=== PATIENT | male | born 1935 | race Caucasian/White ===

== ENCOUNTER → 2016-05-08 | Outpatient (CLI) | payer OTHER, MEDICARE ==
[~2016-05-08] VITALS: Ht 175.3 cm; Wt 71.7 kg
[~2016-05-08] MED LIST: ADULT LOW DOSE81 MG PO; ALLEGRA ALLERGY60 MG PO; AMITRIPTYLINE H10 M1 PO; ASPIRIN EC81 M1 PO; CELEBREX 200 M200 MG PO; CENTRUM SILVER1 EAC2 PO; CRESTOR5 MG PO; DOXYCYCLINE 10100 MG PO; FAMCICLOVIR500 MG PO; FEXOFENADINE H180 MG PO; FISH OIL 1,0001 EAC5 PO; HYDROCODON-ACE1 EACH PO; HYDROXYCHLOROQUINE PO; LIDOCAINE TOP; LYRICA 75 MG CA75 MG PO; LYRICA PO; MOBIC15 MG PO; NEURONTIN 300300 M1 PO; NEXIUM40 MG PO; OMEPRAZOLE20 M2 PO; ROXICODONE5 M1 PO; SKELAXIN 800 M800 M1 PO; TRAMADOL 50 MG50 MG PO; VITAMIN D1000 UNI1 PO; VITAMIN E400 UNIT PO; ZINC CHELATE50 MG PO
--- NOTE | ~2016-05-08 | HPC ---
[facility] [place] [place] [address] PAIN MANAGEMENT CONSULTATION Name: TRISH PHAM Room #: REG [facility] Faraz.#: [id number] Admission: 05/08/16 Attend Phys: Rajendra Payton DO Discharge: Date of : 36 Report #: [id number] THIS REPORT FOR: //name// CC: Stephen Payton The patient is a 80-year-old gentleman, being treated for lumbar radiculopathy status post decompressive laminectomy, component of cervical radicular symptoms. Last seen in the pain clinic on 03/16/2016. The patient was seen for a prolonged visit from 08:30 to 08:57, greater than 50% of this 25+ minute visit was spent counseling the patient. He was given left L3-L4 transforaminal epidural injection in January, caudal epidural injection on 03/16/2016, for ongoing radicular symptoms. Referred to follow up with Dr. Madhu Staton. Dr. Staton noted if the patient had surgery, it would be a fairly extensive decompression and fusion. Per the patient, Dr. Staton told me we would have to "realign his spine." He does have a follow up appointment in a month or so to discuss further consideration for back surgery. The patient currently notes pain is in the right low back and he also notes some neck pain. He started taking gabapentin 300 mg up to taking 2 at night, which seems to be helpful. He did note initially the gabapentin caused a little insomnia, but seems to be doing better now in fact his radicular symptoms seemed to be fairly improved. Rates his pain a 3 on a 0-10 visual analog scale. Notes pain seems to be exacerbated with standing, using his computer. Some relief if he is recumbent. Caudal injection did afford significant relief. The patient notes greater than 60% relief and somewhat still ongoing. The patient goes to the gym 4 days a week and rides a bike, though he states he really doing any weight work seem to exacerbate his neck pain. He is complaining of pain in the neck, right arm, and shoulder. The patient is a little hard to pin down. He has a somewhat tangential flight of thought. He tells me he thinks his back pain and leg pain secondary to a total knee arthroplasty years ago. He has actually had bilateral knees done by Dr. Aleman. He feels that the right knee, the second one to be done, which does have a different prosthetic device, it is shorter than his left leg and this has been the source of a great deal of problem for him. He prior had been treated for cervical radicular symptoms by myself, cervical epidural injections were given on July 31 and of last year, symptoms generally resolved nicely. Does note that he has been hesitant to resume more aggressive lifting at the gym for fear of exacerbating neck/arm sumptoms. Again, the earlier mentioned 2 lumbar interventions in October and January of last year, have also afforded some good relief. The patient takes 1 Tramadol a day and does take Meloxicam 15 mg daily. Medications are reconciled today and include the aforementioned agents along [address] [address] PAIN MANAGEMENT CONSULTATION Name: TRISH PHAM JR Room #: [facility] [id number] Admission: 05/08/16 Attend Phys: Rajendra Payton DO Discharge: Date of : 36 Report #: [id number] with esomeprazole, multivitamin, zinc, Crestor and hydrochloroquine. PHYSICAL EXAMINATION: Reveals a 80-year-old gentleman, BMI is 23.3 kg/m2. Blood pressure is 130/68, pulse 68, respirations are 18. Cervical range of motion, flexion, extension exacerbates neck pain, though no true radicular symptoms are noted. He is tender over the right deltoid insertion. Right deltoid strength and triceps strength are modestly diminished, all else is about 4/5 to objective testing. Biceps, triceps, and brachioradialis reflexes are symmetric. Hand grasp is good. Heart is regular rhythmical. Lungs are clear. Rises from chair using armrests. Lumbar flexion is limited about 70 degrees. Gait is minimally antalgic with a very nominally positive straight leg raise on the right. Objectively the right leg is about 1/4 of an inch longer than the left. Typically, this is discrepancy is fairly inconsequential. 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 Moderate dextrose scoliosis centered at about L3-L4 with grade 1 benjamin-spondylolisthesis at L4-L5. Kktq-dn-nsocudgz left lateral recess at L3-L4, again primary radicular symptoms are contralateral on the right side. Right neural foraminal narrowing is greatest at L5-S1. Cervical MRI from 01/15/2015, notes multilevel degenerative disk disease greatest at C5-C6 and C6-C7 with severe bilateral neural foraminal narrowing at C5-C6. Moderate bilateral stenosis at C3-C4 and C4-C5 with slight reversible cervical lordosis. ASSESSMENT: Symptomatic lumbar radiculopathy status post decompressive laminectomy, cervical radiculopathy with symptoms actually relatively quiescent at present. RECOMMENDATION: 1. Continue gabapentin 2 tablets at bedtime. I will be happy to have the nurses renew that prescription as needed. 2. If cervical radicular symptoms becomes problematic, we can consider cervical epidural injection for radicular component of pain. Presently, though he seems to be doing reasonably well, we will have him follow up with Dr. Staton regarding any concerns for further surgery, I believe they do have a followup appointment scheduled for the next 4-8 weeks. <ELECTRONICALLY SIGNED> By: Rajendra Payton DO 05/13/16 0729 1215 1443 Rajendra Payton DO /nt
[2016-05-08 08:32] VITALS: BP 130/68
== END | disposition home or self-care (01) ==
LOC: PAIN 07:03
DX: M54.16 Radiculopathy, lumbar region (principal); G89.29 Other chronic pain; M54.12 Radiculopathy, cervical region; Z98.890 Other specified postprocedural states

== ENCOUNTER → 2016-06-15 | Outpatient (CLI) | payer OTHER, MEDICARE ==
[~2016-06-15] VITALS: Ht 175.3 cm; Wt 71.7 kg
--- NOTE | ~2016-06-15 | HPC ---
[facility] [address] [employer] [place] [address] PAIN MANAGEMENT CONSULTATION Name: TRISH PHAM JR Room #: REG [facility] Deloris#: [id number] Admission: 06/15/16 Attend Phys: Rajendra Payton DO Discharge: Date of : 36 Report #: [id number] THIS REPORT FOR: //name// CC: Stephen Payton DATE OF SERVICE: 06/15/2016 The patient is a very pleasant 80-year-old gentleman typically treated for cervical radiculopathy and lumbar radiculopathy status post lumbar decompressive laminectomy. At last visit 05/08/2016, we had continued the patient on baseline medication including gabapentin 300 mg 2 tablets at bedtime. Talked about moving forward with cervical epidural injection if radicular symptoms continued. Presents to pain clinic today noting cervical radicular symptoms continued. Pain is primarily in the left greater than right neck and shoulder, some ongoing right lumbar radicular symptoms. PHYSICAL EXAMINATION: Shows 80-year-old gentleman, BMI is 23.3 kilograms per meter squared. Vital signs stable. Cervical range of motion is modestly limited. Positive Lhermitte's. Pain in the left shoulder, neck and arm. ASSESSMENT: Symptomatic cervical radiculopathy. RECOMMENDATION: 1. We will enable the RN to renew gabapentin 300 mg 2 tablets at bedtime, 60 tablets with 5 refills if the pharmacy calls, does not require prescription today. 2. Cervical epidural injection under fluoroscopy. 3. Follow up simply as needed. PROCEDURE NOTE: Cervical epidural injection under fluoroscopy. PROCEDURE: Cervical epidural steroid injection under fluoroscopy. PROCEDURE NOTE: After written and informed consent was obtained including risk of dural puncture, spinal cord trauma, paralysis and increased pain, the patient was taken to the fluoroscopy suite and placed in the prone position, with appropriate abdominal bolstering, neck was flexed, palms under the thighs. Skin was prepped with ChloraPrep. Sterile draping was applied. Skin wheal with 1% Xylocaine was raised. A 22-gauge 3-1/2 inch epidural Tuohy needle was placed via a midline approach at the C7-T1 interspace, advanced under biplanar fluoroscopy using continuous loss of resistance. With appropriate loss of resistance at the expected depth on lateral view, the glass loss of resistance syringe was disconnected. A low volume extension tubing was connected to the needle and a 5 mL syringe. Negative aspiration for cerebrospinal fluid or blood [address] [address] PAIN MANAGEMENT CONSULTATION Name: TRISH PHAM Room #: REG [facility]#: [id number] Admission: 06/15/16 Attend Phys: Rajendra Payton DO Discharge: Date of : 36 Report #: [id number] was noted. A 1 mL of Omnipaque was injected which showed spread within the epidural space on biplanar fluoroscopy. This was followed with 80 mg of triamcinolone plus 1 mL of 1.5% preservative Xylocaine. Needle was withdrawn to the interspinous ligament, 0.5 mL of Xylocaine was used to flush the needle. The needle was then completely withdrawn. The area was cleansed. Band-Aid was applied. The patient was allowed to move off the procedure table and ambulated to the recovery room, monitored for an appropriate period of time, discharged in good and stable condition. <ELECTRONICALLY SIGNED> By: Rajendra Payton DO 06/17/16 1105 0933 1228 Rajendra Payton DO /nt
[2016-06-15 08:25] VITALS: BP 114/67
== END | disposition home or self-care (01) ==
LOC: PAIN 06-12 13:18
DX: M54.12 Radiculopathy, cervical region (principal); G89.29 Other chronic pain; Z98.890 Other specified postprocedural states

== ENCOUNTER → 2017-02-04 | Outpatient (CLI) | payer OTHER, MEDICARE ==
[~2017-02-04] VITALS: Ht 175.3 cm; Wt 74.0 kg
[~2017-02-04] MED LIST changes: +METAMUCIL FIBE1 EACH PO; +MOVANTIK25 MG PO; +NEURONTIN 300M300 M2 PO
--- NOTE | ~2017-02-04 | HPC ---
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 Last seen in the pain clinic 08/28/2016, we did a caudal injection at that time. The patient returns to pain clinic today, we had a moderately prolonged visit from 8:43-9:10. Ultimately taking to the procedure room for caudal epidural injection. The patient has weaned off of tramadol, he wisely noted that it really was not alleviating pain and was merely blocking some symptoms. He was able to continue functional status unchanged weaning off the tramadol. He does continue to take gabapentin 300 mg 2 tablets at bedtime. Doing well with this agent. Does take Meloxicam 15 mg on a daily basis. We had prior talked about using this on a more nondaily basis in consideration of coronary artery disease. The patient notes chronic pain is in the back with left leg aching pain with episodic electrical activity down the leg. He rates his pain a "7.5" on a VAS 1 to 10. To his credit, he continues to exercise, goes to the gym 4 times a day, rides the recumbent bike for about 20 minutes and then does 4 Nautilus machines, upper arm curls, triceps machine and 2 Nautilus machines engaging the pectoralis muscles. He walks his [employer] 1 mile daily. He states that while pain is bothersome, it does not interfere with functional status. He does note that the caudal injections have always afforded good incremental relief, greater than 60% for greater than 6 weeks. PHYSICAL EXAMINATION: Shows 81-year-old gentleman appearing younger than stated age, BMI is 24.1 kg/m2. Blood pressure 129/75, pulse 64, and respirations are 16. He is alert and oriented to person, place and time, judged to be a reasonable historian. Rises from the chair using the armrest. Gait is tandem. Does have some diffuse low back tenderness. Passive rotation of the hip is unremarkable. Lower extremity strength is symmetric. Patellar reflexes are diminished, though he is status post total knee arthroplasties. He does have modestly positive straight leg raise, left side. We reviewed diagnostic findings including reviewing his MRI noting clumping of [facility] [address] [place] [address] PAIN MANAGEMENT CONSULTATION Name: TRISH PHAM JR Room #: REG [facility] Puentes#: [id number] Admission: 02/04/17 Attend Phys: Rajendra Payton DO Discharge: Date of : 36 Report #: [id number] the nerve roots in the low lumbar spine. ASSESSMENT: 1. Status post lumbar decompressive laminectomy. 2. Acute exacerbation of lumbar radicular pain. The patient requesting repeat caudal injection. Again, he has had greater than 60% relief for greater than 6 weeks with prior injections, the last one was back in August. 3. Lumbar radiculopathy. 4. History of arachnoiditis with neuropathic pain. 5. Complex medication management. RECOMMENDATION: 1. Long discussion with the patient today about therapeutic options. Again, he is not a surgical candidate at this point, he does not have significant myelopathic symptoms. Of note, he is status post radical prostatectomy. He is cancer free, did not require any adjuvant therapy, but does state that he had some urinary incontinence that was episodic. He saw his urologist. They recommended ciprofloxacin. He notes that the incontinence symptoms seemed to be resolving. We did discuss at length taking the ciprofloxacin, I checked there are no interaction with gabapentin. I did caution the patient if he should get any joint specifically ankle (Achilles) tenderness, he should stop the ciprofloxacin; however, that reaction is actually fairly rare. 2. If pain becomes problematic at some point, we can consider spinal cord stimulator, it is the next logical step for managing symptoms. We talked at length today about mechanism of action and details of trial. Again, I do not think the patient is anywhere near requiring this at present. 3. We talked about continuing the gabapentin as noted above, 300 mg 2 tablets at bedtime that seems to help with sleep and mitigate some of the neuropathic pain component. He does have a 90-day prescription, I will enable the nurses to filling this prescription in if the pharmacy reaches out to us within 6 months. PROCEDURE NOTE: Caudal injection under fluoroscopy. PROCEDURE: After written informed consent was obtained, the patient was taken to fluoroscopy suite, placed in prone position. After sterile prep and drape, skin wheal was raised. A 22-gauge stylet needle was placed to the sacroiliitis into caudal epidural space. Negative aspiration was accomplished. 1 mL of Omnipaque was injected, which showed spread within the caudal space, this was followed with 80 mg of triamcinolone plus 3 mL of 0.5% preservative-free lidocaine. Needle was removed, the area was cleansed, Band-Aids applied. The patient was allowed to ambulate in the recovery room, monitored for an [facility] [address] [place] [address] PAIN MANAGEMENT CONSULTATION Name: TRISH PHAM JR Room #: REG [facility] Deloris#: [id number] Admission: 02/04/17 Attend Phys: Rajendra Payton DO Discharge: Date of : 36 Report #: [id number] appropriate period of time, discharged in good and stable condition, follow up simply p.r.n. <ELECTRONICALLY SIGNED> By: Rajendra Payton DO 02/05/17 0926 0915 1328 Rajendra Payton DO /nt
[2017-02-04 08:20] VITALS: BP 129/75
== END | disposition home or self-care (01) ==
LOC: PAIN 06:54
DX: M54.16 Radiculopathy, lumbar region (principal); G89.4 Chronic pain syndrome; Z98.890 Other specified postprocedural states

== ENCOUNTER → 2017-06-28 | Outpatient (CLI) | payer OTHER, MEDICARE ==
[~2017-06-28] VITALS: Ht 175.3 cm; Wt 74.3 kg
[~2017-06-28] MED LIST changes: +NEXIUM20 MG PO; -NEXIUM40 MG PO
--- NOTE | ~2017-06-28 | HPC ---
[facility] [address] [place] [address] PAIN MANAGEMENT CONSULTATION Name: TRISH PHAM JR [facility]: [facility] [id number] Admission: 06/28/17 Attend Phys: Rajendra Payton DO Discharge: Date of : 36 Report #: [id number] THIS REPORT FOR: //name// CC: Stephen Payton DATE OF SERVICE: 06/28/2017 The patient is an 81-year-old gentleman long known to pain clinic, status post 2 lumbar decompressive laminectomies in short order, I believe in 2013 ongoing chronic pain syndrome, neuropathic pain, history of cervical radiculopathy requiring complex medication management. Last seen in pain clinic 03/07/2017. We did a caudal epidural injection with overall improvement of baseline pain (he prior had had a caudal injection in August again with good improvement). Uses gabapentin 300 mg at bedtime, goes to the gym 4 times a week. He has generally been doing reasonably well until he fell several weeks ago. He fell backward, striking his right hip and legs, has had increased radicular symptoms. He contacted Dr. Madhu Staton's office. I was phoned in a prescription for a Medrol Dosepak, which only afforded transient relief. He notes pain remains problematic in a right L4 pattern, radiating down the leg, exacerbated with standing, walking and bending. PHYSICAL EXAMINATION: Shows an 81-year-old gentleman, BMI is approximately 22 kilograms per meter squared. Rises from chair easily. Lumbar flexion is limited about 70 degrees. Lower extremity strength shows slight decreased right hip flexion, lower extremity extension strength. Has some paresthesia in the left leg from the knee down a little heaviness in the left thigh. DIAGNOSTIC STUDIES: Somewhat dated from 2015. ASSESSMENT: Symptomatic lumbar radiculopathy status post decompressive laminectomy in a gentleman with acute exacerbation of lumbar radicular symptoms. RECOMMENDATION: 1. Continue current medication unchanged. 2. Caudal epidural injection under fluoroscopy today. 3. MRI with and without contrast. 4. Follow up after MRI to evaluate pathology and efficacy of interventional therapy today. PROCEDURE: Caudal epidural injection under fluoroscopy. PROCEDURE NOTE: After written informed consent was obtained, the patient was taken to fluoroscopy suite, placed in prone position. After sterile prep and drape, skin wheal was raised. A 22-gauge stylet [place] [id number] PAIN MANAGEMENT CONSULTATION Name: TRISH PHAM JR Room #: REG REFUGIO Puentes#: [id number] Admission: 06/28/17 Attend Phys: Rajendra Payton DO Discharge: Date of : 36 Report #: [id number] hiatus in the caudal epidural space. Negative aspiration was accomplished. 1 mL of Omnipaque injected, which showed spread within the caudal space. This was followed with 80 mg triamcinolone plus 3 mL of 1.0% preservative-free Xylocaine. Needle was removed, area was cleansed, Band-Aid was applied. The patient monitored for an appropriate period of time, discharged in good stable condition. RECOMMENDATIONS: We will get an MRI with and without contrast, [facility], they had done his prior 2016 MRI. <ELECTRONICALLY SIGNED> By: Rajendra Payton DO 07/01/17 0938 1234 1447 Rajendra Payton DO /nt
[2017-06-28 11:12] VITALS: BP 131/69
== END | disposition home or self-care (01) ==
LOC: PAIN 07:18
DX: M54.16 Radiculopathy, lumbar region (principal); M54.12 Radiculopathy, cervical region; Z98.890 Other specified postprocedural states

== ENCOUNTER → 2018-03-02 | Outpatient (CLI) | payer OTHER, MEDICARE ==
[~2018-03-02] VITALS: Ht 175.3 cm; Wt 72.8 kg
[~2018-03-02] MED LIST changes: +OXYBUTYNIN 5 MG5 M2 PO
[2018-03-02 08:24] VITALS: BP 115/66
== END | disposition home or self-care (01) ==
LOC: PAIN 02-15 06:35
DX: M54.16 Radiculopathy, lumbar region (principal); G89.29 Other chronic pain; Z88.2 Allergy status to sulfonamides; Z79.01 Long term (current) use of anticoagulants; Z79.899 Other long term (current) drug therapy

== ENCOUNTER → 2018-04-29 | Outpatient (CLI) | payer OTHER, MEDICARE ==
[~2018-04-29] VITALS: Ht 175.3 cm; Wt 70.8 kg
--- NOTE | ~2018-04-29 | HPC ---
[facility] [place] [address] [place] [address] PAIN MANAGEMENT CONSULTATION Name: TRISH PHAM JR Room #: REG [facility] Deloris#: [id number] Admission: 04/29/18 Attend Phys: Johanna Acosta MD Discharge: Date of : 37 Report #: [id number] THIS REPORT FOR: //name// CC: Stephen Acosta DATE OF SERVICE: 04/29/2018 CHIEF COMPLAINT: Pain in the upper arms and neck, particularly on the right shoulder. FOLLOWUP HISTORY: The patient is an 82-year-old gentleman who has been seen and followed in the Pain Clinic. He has pain and discomfort in the low back area. He has undergone caudal injections to help improve that pain. Notes after the last caudal injection and improvement in his low back pain as well as some in the neck area. At this juncture, he has noted a worsening of pain involves his upper extremity with pain into the right shoulder area. He feels that the pain in the right has been bad enough that he is unable to engage in activities of daily living. The patient fell in April, on the ice. He notes some tingling, burning, stiffness, aching and tenderness. Rates his pain as 9/10. He has returned today with a desire to undergo a cervical epidural steroid injection. He and his are contemplating going to [place] for about 5 days to see family members. He feels that an injection would certainly make things a bit more accommodating where he did get the cervical epidural steroid injection to decrease his pain and discomfort. ALLERGIES: SULFA. MEDICATIONS: Oxybutynin 5 mg, Metamucil, Neurontin 600 mg at bedtime, Meloxicam 15 mg daily, Nexium 20 mg, Centrum Ultra 1 tablet daily, Zinc Chelate 50 mg, Crestor 50 mg, hydroxychloroquine 200 mg b.i.d. PAIN CLINIC ASSESSMENT/PQRS: 1. History of osteoarthritis in the left upper extremity, right upper extremity, right lower extremity and right shoulder area today. 2. History of rheumatoid. The patient is not being treated for rheumatoid arthritis. 3. Height 5 feet 9 inches, weight 156 pounds, BMI is 23. 4. Vital signs: Blood pressure 124/76, pulse 66, respiratory rate 16, room air saturation 97%. 5. Pain intensity 12/27. 6. Fall history: The patient did fall in April. 7. Blood thinner. The patient is not on a blood thinning medication. 8. Hypertension. The patient is not being treated for hypertension. 9. Opioids greater than 6 weeks. The patient with receives medications through [place] [address] PAIN MANAGEMENT CONSULTATION Name: TRISH PHAM Room #: REG [facility]#: [id number] Admission: 04/29/18 Attend Phys: Johanna Acosta MD Discharge: Date of : 37 Report #: [id number] 10. Risk assessment tool, low for opioid use. 11. Functional assessment tool. 12. Recreational drug use. The patient denies use of recreational drugs. 13. Tobacco: The patient has never smoked. 14. Alcohol: The patient denies use of alcoholic beverages. PHYSICAL EXAMINATION: GENERAL: The patient is a well-developed, well-nourished white male. Appears his stated age. He is alert and oriented x 3. His affect is appropriate. Speech is fluent. HEENT: Normocephalic, atraumatic. Extraocular eye muscles intact. Sclerae nonicteric. Mucous membranes are moist. NECK: The patient has some limited range of motion. Notes increased pain and discomfort involving the neck, particularly and pain is radiating down into the right shoulder into the arm. LUNGS: Clear to auscultation without rhonchi or rales. ABDOMEN: Nontender. Bowel sounds present. EXTREMITIES: Upper extremity muscle strength is judged to be 4+/5 for the major muscle groups in the upper extremity. Lower extremity muscle strength is 5-/5 for the major muscle groups in the lower extremity today. The patient rises easily from his chair using his hands to go to the procedure room. He was assisted in getting on the examination table. IMPRESSION: 1. Symptomatic cervical pain with pain radiating down to the right arm. 2. History of symptomatic lumbar radiculopathy status post decompressive laminectomy. 3. Arthritis. 4. Artificial joint. 5. Left total knee replacement. 6. Cancer. 7. Shingles. 8. Scarlet fever. RECOMMENDATIONS: We discussed treatment options with the patient. Risks and benefits of a cervical epidural steroid injection were discussed. Possible complications of the procedure, which could include but are not limited to infection, worsening of pain, no improvement in pain, spinal headache. The patient elects to proceed. PROCEDURE NOTE: The patient was assisted in going to the examination area. He was positioned on the table in the prone position. Fluoroscopy using anterior, posterior as well as lateral viewing were implemented. The patient's neck was sterilely prepped with a Betadine solution. A 0.25% bupivacaine was infiltrated at the C7-T1 interspace. After a number of attempts, we were unsuccessful given the patient's arthritis and the changes at this level. The T1/T2 interspace was [address] [address] PAIN MANAGEMENT CONSULTATION Name: TRISH PHAM JR Room #: REG [facility]#: [id number] Admission: 04/29/18 Attend Phys: Johanna Acosta MD Discharge: Date of : 37 Report #: [id number] sterilely prepped. A 0.25% bupivacaine was infiltrated in this area. A 17-gauge Tuohy with loss of resistance technique was used to gain access to the epidural space. There was no CSF, heme or paresthesia. Total of 120 mg triamcinolone was injected. The patient tolerated the procedure well. He was taken to the recovery room where he remained for an appropriate amount of time. A total of 22 seconds fluoroscopy time was used. The patient had no complications. He will follow up in the future as needed. We would like to thank you for letting us participate in his care. We hope he continues to improve. By: [id number] Johanna Acosta MD /nt
[2018-04-29 08:14] VITALS: BP 124/76
--- NOTE | 2018-04-29 08:32 | NUR ---
Pain Clinic Assessment: 1. History of Osteoarthritis: Left Upper Extremity Right Upper Extremity Left Lower Extremity Right Lower Extremity History of Rheumatoid Arthritis: Not Applicable 2. Height: 5 ft. 9 in. 175.3 cm. Weight: 156.0 lb. oz. 70.761 kg. Patient's BMI: 23.0 3. Vital Signs: BP: 124/76 Pulse: 66 Resp: 16 Temp: 02 Sat: 97 ECG Mon: 4. Pain Intensity: 9 5. Fall Risk: Dizziness: N Needs help standing or walking: N Fallen in the last 3 months: N Fall risk comments: 6. Patient on Blood Thinner: None 7. History of Hypertension: N 8. Opioid Therapy greater than 6 weeks: N Opiate Contract Signed: 9. Risk Assessment Tool Provided: 10. Functional Assessment Tool: 11. Recreational Drug Use: Never Drug Type: Tobacco Use: Never Smoker Tobacco Type: Amount or Packs/day: How Many Years: Alcohol Use: No Frequency: Quant:
== END | disposition home or self-care (01) ==
LOC: PAIN 06:46
DX: M54.2 Cervicalgia (principal); M54.16 Radiculopathy, lumbar region; M19.90 Unspecified osteoarthritis, unspecified site; I10 Essential (primary) hypertension; Z98.890 Other specified postprocedural states; Z96.652 Presence of left artificial knee joint; Z85.9 Personal history of malignant neoplasm, unspecified; Z88.2 Allergy status to sulfonamides; Z79.899 Other long term (current) drug therapy; Z79.891 Long term (current) use of opiate analgesic